=== PATIENT | male | born 1975 | race Two or more races ===

== ENCOUNTER 2021-06-24 22:57 | Emergency (ER) | payer MEDICAID ==
[~2021-06-24] VITALS: Ht 160 cm; Wt 68.0 kg
[2021-06-25 01:03] LABS: Albumin 3.6 g/dL (3.4-5.0); BUN/Creatinine Ratio 19.8; Calcium 8.3 mg/dL (8.5-10.1); Potassium 4.2 mmol/L (3.5-5.1)
[2021-06-25 01:06] LABS: Basophils # (auto) 0 10 ^3/uL (0-0.2); Basophils % (auto) 0.3 % (0.0-2.0); Bilirubin, Total 0.4 mg/dL (0.2-1.0); Eosinophils # (auto) 0.1 10 ^3/uL (0-0.8); Hematocrit 39.5 % (41.0-53.0); Hemoglobin 13.8 g/dL (13.5-17.5); Lymphocytes % (auto) 17.3 % (10.0-50.0); Mean Corpuscular Hemoglobin 30.9 pg (28.0-32.0); Mean Corpuscular Hgb Conc. 34.9 g/dL (32.0-36.0); Mean Corpuscular Volume 88.3 fL (80.0-100.0); Monocytes # (auto) 0.9 10 ^3/uL (0-1.3); Monocytes % (auto) 8.2 % (0.0-12.0); Neutrophils # (auto) 8.3 10 ^3/uL (1.6-8.6); Neutrophils % (auto) 73.2 % (37.0-80.0); Nucleated Red Blood Cells % 0.2 %; Red Blood Cells 4.47 10^6/uL (4.5-5.90); Red Cell Distribution Width 12.9 % (11.8-14.3); Total Protein 7.2 g/dL (6.4-8.2); White Blood Cell 11.3 10^3/uL (4.4-10.8)
[2021-06-25] MEDS ORDERED: SODIUM CHLORIDE 0.9% 1,000 ML IV ONE (05:45)
[2021-06-25 07:46] VITALS: BP 125/83
[2021-06-25] MEDS ORDERED: KETOROLAC TROMETH 30 MG/ML 1ML VIAL IV ONE (08:15)
[2021-06-25] MEDS ORDERED: ACETAMINOPHEN 500 MG TAB PO ONE (08:30)
== END 2021-06-25 09:03 | disposition home or self-care (01) ==
LOC: ER 22:57
DX: I12.9 Hypertensive chronic kidney disease with stage 1 through stage 4 chronic kidney disease, or unspecified chronic kidney disease (principal); E11.22 Type 2 diabetes mellitus with diabetic chronic kidney disease; E11.65 Type 2 diabetes mellitus with hyperglycemia; N18.30 Chronic kidney disease, stage 3 unspecified; Z20.822 Contact with and (suspected) exposure to COVID-19; Z90.89 Acquired absence of other organs; Z88.0 Allergy status to penicillin
CPT/HCPCS: 36415; 71045; 80053; 82962; 85025; 87426; 96360

== ENCOUNTER 2024-10-09 08:23 | Inpatient (IN) | payer MEDICAID ==
[~2024-10-09] VITALS: Ht 160 cm; Wt 70.2 kg
--- NOTE | 2024-10-09 08:34 | ECG ---
[facility] Test Date: 2024-10-09 Test Time: 08:29:19 Pat Name: SUSSY ZHU Department: er Room: [address] [place] [address] Gender: M [employer]: gp : 1975 Requested By: CHUYITA SCHWARTZ Order Number: [id number] Reading MD: Jose Enrique Ho Measurements Intervals [place] Rate: 112 P: 50 ND: 95 QRS: 80 QRSD: 89 T: -39 QT: 333 QTc: 455 Interpretive Statements Sinus tachycardia Probable inferior infarct, age indeterminate Lateral leads are also involved Baseline wander in lead(s) V4 Electronically Signed On 10-12-2024 17:18:51 PST by Jose Enrique Ho Please click the below link to view image of tracing.
--- NOTE | 2024-10-09 09:17 | ED.PDOC ---
History of Present Illness HPI Comments 49-year-old male presents with a chief complaint of right sided facial droop x onset yesterday morning at 0900. Patient states that in the morning he was noticing that he had right facial drooping and some slight dizziness. Patient denies any decreasing in ROM on his right side and is able to ambulate with a steady gait. Patient is alert and oriented x 4. Patient denies any changes to his vision, headache, loss of balance, or other neurological deficits. No other symptoms or modifying factors present at this time. Chief Complaint: Right Sided Weakness Time Seen by MD: 08:59 Primary Care Provider: ROMK Reviewed Notes: Medications, Allergies Allergies: Coded Allergies: Penicillins (Verified Allergy, Unknown, 06/24/21) Information Source: Patient Mode of Arrival: Ambulatory Severity: Moderate Timing: Hours Duration: Since onset Prehospital treatment: None Past Medical History PAST MEDICAL HISTORY: CKF, DM, HTN Surgical History: Appendectomy Family History Family History: Reviewed,noncontributory to illness Social History Smoker: Non-Smoker Alcohol: Denies ETOH Use Lives In: Home Constitutional: denies: chills, diaphoresis, fatigue, fever, malaise, sweats, weakness, others EENTM: denies: blurred vision, double vision, ear bleeding, ear discharge, ear drainage, ear pain, ear ringing, eye pain, eye redness, hearing loss, mouth pain, mouth swelling, nasal discharge, nose bleeding, nose congestion, nose pain, photophobia, tearing, throat pain, throat swelling, voice changes, others Respiratory: denies: cough, hemoptysis, orthopnea, SOB at rest, shortness of breath, SOB with excertion, stridor, wheezing, others Cardiovascular: denies: chest pain, dizzy spells, diaphoresis, Dyspnea on exertion, edema, irregular heart beat, left arm pain, lightheadedness, palpitations, PND, syncope, others Gastrointestinal: denies: abdomen distended, abdominal pain, blood streaked bowels, constipated, diarrhea, dysphagia, difficulty swallowing, hematemesis, melena, nausea, poor appetite, poor fluid intake, rectal bleeding, rectal pain, vomiting, others Genitourinary: denies: burning, dysuria, flank pain, frequency, hematuria, incontinence, penile discharge, penile sore, pain, testicle pain, testicle swelling, urgency, others Neurological: reports: right sided weakness (RIGHT SIDED FACIAL DROOP); denies: dizziness, fainting, headache, left sided numbness, left sided weakness, numbness, paresthesia, pre-existing deficit, right sided numbness, seizure, speech problems, tingling, tremors, weakness, others Musculoskeletal: denies: back pain, gout, joint pain, joint swelling, muscle pain, muscle stiffness, neck pain, others Integumetry: denies: bruises, change in color, change in hair/nails, dryness, laceration, lesions, lumps, rash, wounds, others Allergic/Immunocompromised: denies: Difficulty Healing, Frequent Infections, Hives, Itching, others Hematologic/Lymphatic: denies: anemia, blood clots, easy bleeding, easy bruising, swollen glands, others Endocrine: denies: excessive hunger, excessive sweating, excessive thirst, excessive urination, flushing, intolerance to cold, intolerance to heat, unexplained weight gain, unexplained weight loss, others Psychiatric: denies: anxiety, bipolar disorder, depression, hopeless, panic disorder, schizophrenia, sleepless, suicidal, others All Other Systems: Reviewed and Negative Physical Exam General Appearance: No Apparent Distress, Normal HEENT: Normal ENT Inspection, Pharynx Normal, TMs Normal Neck: Full Range of Motion, Non-Tender, Normal, Normal Inspection Respiratory: Chest Non-Tender, Lungs Clear, No Accessory Muscle Use, No Respiratory Distress, Normal Breath Sounds Cardiovascular: No Edema, No JVD, No Murmur, No Gallop, Normal Peripheral Pulses, Regular Rate/Rhythm Breast Exam: Deferred Gastrointestinal: No Organomegaly, Non Tender, No Pulsatile Mass, Normal Bowel Sounds, Soft Genitalia: Deferred Pelvic: Deferred Rectal: Deferred Extremities: No calf tenderness, Normal capillary refill, Normal inspection, Normal range of motion, Non-tender, No pedal edema Musculoskeletal : Apperance: Normal 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 Was a procedure done?: No Differential Dx Considerations may include: CVA, electrolyte abnormality X-Ray, Labs, Meds, VS Vital Signs Date Time Temp Pulse Resp B/P (MAP) Pulse Ox O2 Delivery O2 Flow Rate FiO2 10/09/24 10:24 98.6 100 18 144/93 (110) 98 98.6 10/09/24 09:25 98.3 110 18 146/79 (101) 97 98.3 10/09/24 08:36 97.9 109 18 161/94 (116) 97 10/09/24 08:29 112 Lab Test 10/09/24 10:25 10/09/24 09:30 10/09/24 08:28 Range/Units Troponin I High Sensitivity 15 16 </=54 ng/L White Blood Count 9.2 4.4-10.8 10^3/uL Red Blood Count 5.11 4.5-5.90 10^6/uL Hemoglobin 15.8 13.5-17.5 g/dL Hematocrit 45.8 41.0-53.0 % Mean Corpuscular Volume 89.7 80.0-100.0 fL Mean Corpuscular Hemoglobin 31.0 28.0-32.0 pg Mean Corpuscular Hemoglobin Concent 34.5 32.0-36.0 g/dL Red Cell Distribution Width 13.1 11.8-14.3 % Platelet Count 273 140-450 10^3/uL Mean Platelet Volume 8.9 6.9-10.8 fL Neutrophils (%) (Auto) 82.0 H 37.0-80.0 % Lymphocytes (%) (Auto) 12.0 10.0-50.0 % Monocytes (%) (Auto) 5.2 0.0-12.0 % Eosinophils (%) (Auto) 0.4 0.0-7.0 % Basophils (%) (Auto) 0.4 0.0-2.0 % Neutrophils # (Auto) 7.5 1.6-8.6 10 ^3/uL Lymphocytes # (Auto) 1.1 0.4-5.4 10 ^3/uL Monocytes # (Auto) 0.5 0-1.3 10 ^3/uL Eosinophils # (Auto) 0 0-0.8 10 ^3/uL Basophils # (Auto) 0 0-0.2 10 ^3/uL Nucleated Red Blood Cells 0.0 % Sodium Level 137 136-145 mmol/L Potassium Level 4.7 3.5-5.1 mmol/L Chloride Level 101 98-107 mmol/L Carbon Dioxide Level 29 20-31 mmol/L Anion Gap 7 5-15 Blood Urea Nitrogen 27 H 9-23 mg/dL Creatinine 1.40 H 0.700-1.30 mg/dL Glomerular Filtration Rate Calc 61 >90 mL/min BUN/Creatinine Ratio 19.3 10.0-20.0 Serum Glucose 456 *H 74-106 mg/dL Calcium Level 10.1 8.7-10.4 mg/dL POC Glucose 375 H 70-106 mg/dl Time of 1ST Reevaluation: 09:29 Reevaluation 1ST: Unchanged Patient Education/Counseling: Diagnosis, Treatment, Prognosis Family Education/Counseling: No Family Present Departure 1 Departure Time of Disposition: 09:45 (Patient presented with a cva but unfortunately patient is out of the window for any acute interventions at this time. Being greater than 24 hours out. We will admit patient for further workup and expert consultation.) Impression: Primary Impression: CVA (cerebral vascular accident) Qualified Codes: I63.9 - Cerebral infarction, unspecified Additional Impression: Right sided weakness Disposition: ADMITTED INPATIENT Admit to: Med Surg Condition: Serious Critical Care Note Critical Care Time?: Yes Critical care comment: Concern for CVA Authorized and Performed by: Chuyita Pack MD Total critical care time: Approximately 40 minutes Due to a high probability of clinically significant, life threatening deterioration, the patient required my highest level of preparedness to intervene emergently and I personally spent this critical care time directly and personally managing the patient. This critical care time included obtaining a history; examining the patient; pulse oximetry; ordering and review of studies; arranging urgent treatment with development of a management plan; evaluation of patient's response to treatment; frequent reassessment; and, discussions with other providers. This critical care time was performed to assess and manage the high probability of imminent, life-threatening deterioration that could result in multi-organ failure. It was exclusive of separately billable procedures and treating other patients and teaching time. Please see my other sections and the rest of the note for further information on patient assessment and treatment. Stability Stability form required: No I personally scribed for CHUYITA PACK MD ([email or web address]) on 10/09/24 at 09:17. Electronically submitted by Chucho Jeong ([email or web address]). CHUYITA PACK MD Oct 09, 2024 09:17
--- NOTE | 2024-10-09 09:27 | DVH ---
CHEST RADIOGRAPH Indication: facial droop Technique: Frontal and lateral view of the chest was obtained Comparison: None FINDINGS: Lines and Tubes: None Lungs: Clear Pleura: No effusion. No pneumothorax. Cardiomediastinal contours: Unremarkable Bones: Unremarkable IMPRESSION: No evidence of acute disease.
--- NOTE | 2024-10-09 09:36 | DVH ---
EXAM: CT HEAD WITHOUT CONTRAST INDICATION: facial droop TECHNIQUE: CT of the head without intravenous contrast. Radiation Dose : 1. Head: CT Dose: CTDI volume is 56.67 mGy. Dose-length product is 1003.41 mGy*cm The dose indicators for CT are the volume Computed Tomography (CT) Dose Index (CTDIvol) and the Dose Length Product (DLP), and are measured in units of mGy and mGy-cm, respectively. These indicators are not patient dose, but values generated from the CT scanner acquisition factors. The report includes radiation exposure data for exposures received during this examination. COMPARISON: None FINDINGS: There is no evidence of acute intracranial hemorrhage, extra-axial collection, mass effect, midline s hift, herniation or hydrocephalus. The ventricles, sulci and cisterns are age appropriate. 1.1 cm region of hypoattenuation in the left anterior internal capsule. The visualized paranasal sinuses and mastoid air cells are clear. The surrounding soft tissues and osseous structures are unremarkable. IMPRESSION: Possible acute to subacute infarct in the left anterior internal capsule. Clinical correlation advise d. MRI can be obtained to further evaluate. Critical Result: Stroke Alert Findings discussed with CHUYITA SCHWARTZ at 10/09/2024 09:33 AM, and acknowledged receipt and understandi ng of the findings. Radiation optimization: All CT scans at this facility use at least one of these dose optimization isi hniques: automated exposure control mA and/or kV adjustment per patient size (includes targeted exam s where dose is matched to clinical indication) or iterative reconstruction.
[2024-10-09 09:56] LABS: Basophils # (auto) 0 10 ^3/uL (0-0.2); Basophils % (auto) 0.4 % (0.0-2.0); Eosinophils # (auto) 0 10 ^3/uL (0-0.8); Eosinophils % (auto) 0.4 % (0.0-7.0); Hematocrit 45.8 % (41.0-53.0); Hemoglobin 15.8 g/dL (13.5-17.5); Lymphocytes # (auto) 1.1 10 ^3/uL (0.4-5.4); Mean Corpuscular Hgb Conc. 34.5 g/dL (32.0-36.0); Mean Corpuscular Volume 89.7 fL (80.0-100.0); Monocytes # (auto) 0.5 10 ^3/uL (0-1.3); Monocytes % (auto) 5.2 % (0.0-12.0); Neutrophils # (auto) 7.5 10 ^3/uL (1.6-8.6); Platelet Count (auto) 273 10^3/uL (140-450); Red Blood Cells 5.11 10^6/uL (4.5-5.90); Red Cell Distribution Width 13.1 % (11.8-14.3); White Blood Cell 9.2 10^3/uL (4.4-10.8)
[2024-10-09 10:05] LABS: Anion Gap 7 (5-15); Carbon Dioxide 29 mmol/L (20-31); Chloride 101 mmol/L (98-107); Potassium 4.7 mmol/L (3.5-5.1); Sodium 137 mmol/L (136-145)
[2024-10-09 10:06] LABS: Calcium 10.1 mg/dL (8.7-10.4)
[2024-10-09 10:11] LABS: BUN/Creatinine Ratio 19.3 (10.0-20.0); Blood Urea Nitrogen 27 mg/dL (9-23)
[2024-10-09 10:49] LABS: Glucose 456 mg/dL (74-106)
[2024-10-09] MEDS ORDERED: DOCUSATE SOD 100 MG CAP PO PRN (13:30)
[2024-10-09] MEDS ORDERED: HYDROcodone-ACET 5/325MG TAB PO PRN (13:30)
[2024-10-09] MEDS ORDERED: DEXTROSE (50%) 50ML SYRG IV PRN (13:30)
[2024-10-09] MEDS ORDERED: ONDANSETRON HCL 4 MG/2 ML VIAL IV PRN (13:30)
[2024-10-09] MEDS: SODIUM CHLORIDE 0.9% 1,000 ML IV SCH (13:45)
--- NOTE | 2024-10-09 14:50 | DVHHP2 ---
History of Present Illness Reason for Visit: CVA (cerebral vascular accident) History of Present Illness The patient is a 49-year-old male with past medical history of CKD, DM, and hypertension who presented to [facility] ED for evaluation of right- sided facial droop. Patient reports symptoms started yesterday morning at 9:00 a.m. associated with right-sided weakness, dizziness, getting worse that prompted this visit. Patient was seen and evaluated in the ED, laboratory data shows WBC 9.2, platelets 273, sodium 137, potassium 4.7, BUN 27, creatinine 1.40, GFR 61, glucose 456, troponin 15, blood pressure 133/91, heart rate 96, temperature 97.9 F, O2 saturation 98% on room air. Chest x-ray showed no evidence of acute disease. Head CT revealing possible acute to subacute infarct in the left anterior internal capsule. Patient was seen by neurologist with recommendation to give Plavix 300 mg p.o. x1, not a candidate for tPA given patient has past the 4-1/2 hours window. On my assessment, patient denied chest pain, no headache, no dizziness, no diaphoresis, no shortness of breath, no change in vision, no nausea, no vomiting, no fever, no chills. Patient was admitted for further evaluation and medical management. Past Medical History CKD, DM, HTN Past Surgical History Appendectomy Family History Reviewed, noncontributory to the management of this case. Past Social History The patient lives at home, denies smoking, alcohol or illicit drugs abuse. Review of Systems Constitutional: Yes: Weakness; No: Fever, Chills, Sweats, Malaise, Other Eyes: No: Pain, Vision change, Conjunctivae inflammation, Eyelid inflammation, Other, Redness ENT: No: Ear pain, Ear discharge, Nose pain, Nose discharge, Nose congestion, Mouth pain, Mouth swelling, Throat pain, Throat swelling, Other Respiratory: No: Cough, Dry, Shortness of breath, SOB with excertion, Wheezing, Hemoptysis, Pleuritic Pain, Sputum, Wheezing, Other Cardiovascular: No: Chest Pain, Palpitations, Orthopnea, Paroxysmal Noc. Dyspnea, Edema, Lt Headedness, Other Gastrointestinal: No: Nausea, Vomiting, Abdominal Pain, Diarrhea, Constipation, Melena, Hematochezia, Other Genitourinary: No Dysuria, No Frequency, No Incontinence, No Hematuria, No Ret ention, No Other Musculoskeletal: No: other, neck pain, shoulder pain, arm pain, back pain, hand pain, leg pain, foot pain Skin: No: Rash, Lesions, Jaundice, Bruising, Other Neurological: Weakness (Right-sided), Other (Facial droop); No: Numbness, Incoordination, Change in speech, Confusion, Seizures Allergies: Coded Allergies: Penicillins (Verified Allergy, Unknown, 06/24/21) Medications Current Medications Medications Dose Ordered Sig/Maribel Route Start Time Stop Time Status Last Admin Dose Admin Diagnostic Test (Pha) 1 strip IQ4HR 10/09/24 16:00 Insulin Human Regular IQ4HR SC 10/09/24 16:00 Dextrose 50 ml UD PRN IV 10/09/24 13:30 Sodium Chloride 1,000 ml @ 60 mls/hr [id number] IV 10/09/24 13:30 10/09/24 13:45 60 MLS/HR Acetaminophen/ Hydrocodone Bitart 1 tab Q4HP PRN PO 10/09/24 13:30 Ondansetron HCl 4 mg Q4HP PRN IV 10/09/24 13:30 Docusate Sodium 100 mg BIDPRN PRN PO 10/09/24 13:30 Acetaminophen 650 mg Q6HP PRN PO 10/09/24 13:30 Exam Vital Signs Vital Signs Date Time Temp Pulse Resp B/P (MAP) Pulse Ox O2 Delivery O2 Flow Rate FiO2 10/09/24 12:30 97.9 97 18 133/91 (105) 97 97.9 General Appearance: Alert, Oriented X3, Cooperative, No acute distress HEENT: Atraumatic, PERRLA, EOMI, Mucous membr. moist/pink Respiratory: Clear to auscultation, Normal air movement Cardiovascular: Regular rate, Normal S1, Normal S2, No murmurs Abdominal: Normal bowel sounds, Soft, No tenderness, No hepatospenomegaly, No masses Extremities: No clubbing, No cyanosis, No edema, Normal pulses, No tenderness/swelling Skin: No rashes, No breakdown, No significant lesion Neuro: Normal speech, Normal tone, Sensation intact, Cranial nerves 3-12 NL, Reflexes 2+, Other (Right-sided weakness) Psych/Mental Status: Mental status NL, Mood NL Labs/Xrays Labs Test 10/09/24 12:35 10/09/24 09:30 10/09/24 08:28 Range/Units Troponin I High Sensitivity 15 </=54 ng/L White Blood Count 9.2 4.4-10.8 10^3/uL Red Blood Count 5.11 4.5-5.90 10^6/uL Hemoglobin 15.8 13.5-17.5 g/dL Hematocrit 45.8 41.0-53.0 % Mean Corpuscular Volume 89.7 80.0-100.0 fL Mean Corpuscular Hemoglobin 31.0 28.0-32.0 pg Mean Corpuscular Hemoglobin Concent 34.5 32.0-36.0 g/dL Red Cell Distribution Width 13.1 11.8-14.3 % Platelet Count 273 140-450 10^3/uL Mean Platelet Volume 8.9 6.9-10.8 fL Neutrophils (%) (Auto) 82.0 H 37.0-80.0 % Lymphocytes (%) (Auto) 12.0 10.0-50.0 % Monocytes (%) (Auto) 5.2 0.0-12.0 % Eosinophils (%) (Auto) 0.4 0.0-7.0 % Basophils (%) (Auto) 0.4 0.0-2.0 % Neutrophils # (Auto) 7.5 1.6-8.6 10 ^3/uL Lymphocytes # (Auto) 1.1 0.4-5.4 10 ^3/uL Monocytes # (Auto) 0.5 0-1.3 10 ^3/uL Eosinophils # (Auto) 0 0-0.8 10 ^3/uL Basophils # (Auto) 0 0-0.2 10 ^3/uL Nucleated Red Blood Cells 0.0 % Sodium Level 137 136-145 mmol/L Potassium Level 4.7 3.5-5.1 mmol/L Chloride Level 101 98-107 mmol/L Carbon Dioxide Level 29 20-31 mmol/L Anion Gap 7 5-15 Blood Urea Nitrogen 27 H 9-23 mg/dL Creatinine 1.40 H 0.700-1.30 mg/dL Glomerular Filtration Rate Calc 61 >90 mL/min BUN/Creatinine Ratio 19.3 10.0-20.0 Serum Glucose 456 *H 74-106 mg/dL Calcium Level 10.1 8.7-10.4 mg/dL POC Glucose 375 H 70-106 mg/dl PATIENT: SUSSY ZHUACCT: [id number] UNIT: [id number] : 1975 LOC: ER ROOM / BED: / AGE / SEX: 49 / M ADM STATUS: REG ER SERVICE 0900 ORDERING PHYSICIAN: CHUYITA SCHWARTZ MD PROCEDURE(s): HWOCT - HEAD WITHOUT CONTRAST REASON: facial droop ORDER NUMBER(s): [id number], ACCESSION NUMBER(s): [id number] EXAM: CT HEAD WITHOUT CONTRAST INDICATION: facial droop TECHNIQUE: CT of the head without intravenous contrast. Radiation Dose : 1. Head: CT Dose: CTDI volume is 56.67 mGy. Dose-length product is 1003.41 mGy*cm The dose indicators for CT are the volume Computed Tomography (CT) Dose Index (CTDIvol) and the Dose Length Product (DLP), and are measured in units of mGy and mGy-cm, respectively. These indicators are not patient dose, but values generated from the CT scanner acquisition factors. The report includes radiation exposure data for exposures received during this examination. COMPARISON: None FINDINGS: There is no evidence of acute intracranial hemorrhage, extra-axial collection, mass effect, midline shift, herniation or hydrocephalus. The ventricles, sulci and cisterns are age appropriate. 1.1 cm region of hypoattenuation in the left anterior internal capsule. The visualized paranasal sinuses and mastoid air cells are clear. The surrounding soft tissues and osseous structures are unremarkable. IMPRESSION: Possible acute to subacute infarct in the left anterior internal capsule. Clin ical correlation advised. MRI can be obtained to further evaluate. Critical Result: Stroke Alert Findings discussed with CHUYITA SCHWARTZ at 10/09/2024 09:33 AM, and acknowledged receipt and understanding of the findings. ORDERING PHYSICIAN: CHUYITA SCHWARTZ MD PROCEDURE(s): CXR2 - CHEST TWO VIEWS ROUTINE REASON: facial droop ORDER NUMBER(s): [id number], ACCESSION NUMBER(s): [id number] CHEST RADIOGRAPH Indication: facial droop Technique: Frontal and lateral view of the chest was obtained Comparison: None FINDINGS: Lines and Tubes: None Lungs: Clear Pleura: No effusion. No pneumothorax. Cardiomediastinal contours: Unremarkable Bones: Unremarkable IMPRESSION: No evidence of acute disease. Assessment/Plan Assessment/Plan CVA (cerebral vascular accident) Cerebral infarction, unspecified Right sided weakness Plan 1. Admit to telemetry unit 2. Breathing treatment 3. Pain control management 4. Management of fluids and electrolytes 5. Consultation for Neurology 6. Diagnostic tests head CT 7. DVT prophylaxis on aspirin 8. Repeat labs CBC, CMP in a.m. 9. Continue with current medical management 10. Treatment plan discussed with patient and RN. Patient verbalized unde rstanding. Plan discussed with: Patient, Other (RN) My Orders Orders - NATALIE SALVADOR DNP Procedure Category Date Status Time * Neurology Consult CONS 10/09/24 Transmitted 13:17 Consistent DIET 10/09/24 Transmitted Carb(Ccho)Diabetes Lunch Glucose Blood PHA 10/09/24 In Process (Accu-Chek Comfort 16:00 Insulin R (Human) PHA 10/09/24 In Process (Insulin R) 16:00 Dextrose 50% Syringe PHA 10/09/24 In Process 13:30 Allergies NIECY 10/09/24 In Process 13:17 Code Status CODE 10/09/24 Transmitted 13:17 Sodium Chloride 0.9% PHA 10/09/24 In Process 13:30 Oxygen Per Hour RT 10/09/24 Transmitted 13:17 Hydrocodone-Acet PHA 10/09/24 In Process 5/325mg Tab ([place] 13:30 Ondansetron Hcl PHA 10/09/24 In Process (Zofran) 13:30 Docusate Sodium PHA 10/09/24 In Process Capsule (Colace 13:30 Fall Risk Precautions NIECY 10/09/[address] 13:17 Complete Blood Count LAB 10/10/24 Verified 04:00 Comprehensive LAB 10/10/24 Verified Metabolic Panel 04:00 Condition: Serious NIECY 10/09/24 In Process 13:17 Acetaminophen Tablet PHA 10/09/24 In Process (Tylenol Tablet) 13:30 Sequential NIECY 10/09/24 In Process Compression Device Problem List: (1) CVA (cerebral vascular accident) (2) Cerebral infarction, unspecified (3) Right sided weakness Date of Service: Oct 09, 2024 Billing Provider: NATALIE SALVADOR DNP Common Visit Codes: 66509-IAZSKQT INP/OBS CARE (HIGH) NATALIE SALVADOR DNP Oct 09, 2024 14:50
[2024-10-09] MEDS ORDERED: NITROGLYCERIN 0.4 MG SL TAB SL PRN (15:00)
[2024-10-09] MEDS ORDERED: MORPHINE SULFATE INJ 2 MG/ml SYRG IV PRN (15:00)
--- NOTE | 2024-10-09 15:43 | BSKYNEURO ---
[place] [facility] Note # Demographics Consult Type: General Neurology Patient Location: Emergency Room First Name: SUSSY Last Name: AUDRA Date of : 1975 Age: 49 Gender: Male Facility: [facility] Time of Initial Page (): 10/09/2024, 14:15 Time of Return Call (): 10/09/2024, 14:15 # HPI History: LKN- yesterday morning Patient is coming to ER for right facial droop and right arm and speaking diffficulty. H/O DM # Scores Time of exam and NIHSS (): 10/09/2024, 15:36 Level of Consciousness 1a: [0] = Alert; keenly responsive LOC Questions 1b: [0] = Answers both questions correctly LOC Commands 1c: [0] = Performs both tasks correctly Best Gaze 2: [0] = Normal Visual 3: [0] = No visual loss Facial Palsy 4: [2] = Partial paralysis Motor Arm Left 5a: [0] = No drift Motor Arm Right 5b: [1] = Drift Motor Leg Left 6a: [0] = No drift Motor Leg Right 6b: [1] = Drift Limb Ataxia 7: [0] = Absent Sensory 8: [0] = Normal Best Language 9: [0] = No aphasia Dysarthria 10: [1] = [id number] dysarthria Extinction and Inattention 11: [0] = No abnormality NIHSS Total: 5 # Assessment Impression: - Ischemic Stroke (Acute) - Stroke Mimic NIHSS is 5; 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- another possibility is that he has recrudescence of previous stroke symptoms # Plan Thrombolytic/Intervention: NOT IV Thrombolysis or IA Intervention candidate Thrombolytic Exclusion: > 4.5 hours Intraarterial Exclusion: - no large vessel occlusion (LVO) Target Blood Pressure: - SBP < 180 - SBP > 140 Labs: - hemoglobin A1c - lipid panel - comprehensive metabolic panel - CBC Imaging: (urgency: routine): - MRI Brain without contrast Diagnostic Test: - echo with bubble study Therapy/Evaluation: - NPO until swallow evaluation - PT/OT evaluation Medication: - start statin with goal of LDL < 70 - Plavix 300 mg PO x1 now, then 75 mg daily x 21 days + asa 81mg x 21 days, followed by monotherapy thereafter Other: - If patient has any neurological deterioration please call me back immediately - permissive hypertension - LDL < 70 - telemetry monitoring - will need event monitor or loop recorder as outpatient if atrial fibrillation not found as inpatient - neurology referral as outpatient - I have discussed my recommendations with the referring provider Disposition: admit # Logistics Attestation of consult completion: The patient is located at: [facility]. Facility staff participated in the visit. I performed this telemedicine visit from my offsite office utilizing interactive 2 way audio and visual telecommunication technology. Total time spent in telemedicine encounter: I spent 15 minutes reviewing clinical data and/or imaging, obtaining history, examining the patient, communicating with the onsite care team, and in preparation of this report. # Demographics First Name: SUSSY Last Name: AUDRA Facility: [facility] Yes DORA SEO MD Oct 09, 2024 15:43
[2024-10-09] MEDS: CLOPIDOGREL BISULFATE 75 MG TAB PO ONE (15:54)
[2024-10-09] MEDS: InsuLIN REG 1unit/0.01ml Soln (100units/ml) SC SCH (16:03)
[2024-10-09] MEDS: ACCU-CHEK COMFORT CURVE STRIP VI SCH (16:08)
[2024-10-09 17:15] VITALS: PULSE 88; RESP 12; O2SAT 97
[2024-10-09 21:00] VITALS: PULSE 85; RESP 16; O2SAT 97
[2024-10-09] MEDS: ATORVASTATIN 20 MG TAB PO SCH (22:15)
[2024-10-09 22:31] VITALS: BP 158/88; PULSE 92; RESP 18; TEMP 98.2; O2SAT 95
[2024-10-10] VITALS (8 sets, daily range): BP systolic 145–165; BP diastolic 78–91; PULSE 78–94; RESP 18–19; TEMP 98.1–98.7; O2SAT 96–99
[2024-10-10 06:02] LABS: Basophils # (auto) 0 10 ^3/uL (0-0.2); Basophils % (auto) 0.4 % (0.0-2.0); Eosinophils # (auto) 0.1 10 ^3/uL (0-0.8); Eosinophils % (auto) 1.1 % (0.0-7.0); Hematocrit 42.2 % (41.0-53.0); Hemoglobin 14.9 g/dL (13.5-17.5); Lymphocytes # (auto) 2.3 10 ^3/uL (0.4-5.4); Lymphocytes % (auto) 26.7 % (10.0-50.0); Mean Corpuscular Hemoglobin 31.3 pg (28.0-32.0); Mean Corpuscular Hgb Conc. 35.3 g/dL (32.0-36.0); Mean Corpuscular Volume 88.7 fL (80.0-100.0); Monocytes # (auto) 0.6 10 ^3/uL (0-1.3); Neutrophils # (auto) 5.6 10 ^3/uL (1.6-8.6); Neutrophils % (auto) 64.8 % (37.0-80.0); Nucleated Red Blood Cells % 0.3 %; Platelet Count (auto) 261 10^3/uL (140-450); Red Blood Cells 4.76 10^6/uL (4.5-5.90); Red Cell Distribution Width 13.1 % (11.8-14.3); White Blood Cell 8.7 10^3/uL (4.4-10.8)
[2024-10-10 06:16] LABS: Alanine Aminotransferase 19 U/L (7-40); Albumin 3.8 g/dL (3.2-4.8); Alkaline Phosphatase 88 U/L (46-116); Anion Gap 7 (5-15); Aspartate Aminotransferase 15 U/L (13-40); Blood Urea Nitrogen 25 mg/dL (9-23); Calcium 9.8 mg/dL (8.7-10.4); Carbon Dioxide 28 mmol/L (20-31); Chloride 109 mmol/L (98-107); Potassium 3.4 mmol/L (3.5-5.1); Sodium 144 mmol/L (136-145)
[2024-10-10 06:17] LABS: Bilirubin, Total 0.5 mg/dL (0.2-1.0); Total Protein 6.6 g/dL (5.7-8.2)
[2024-10-10 06:22] LABS: Glucose 43 mg/dL (74-106)
[2024-10-10] MEDS: CLOPIDOGREL BISULFATE 75 MG TAB PO SCH (10:21)
[2024-10-10] MEDS: ASPirin 81 mg TAB PO SCH (10:22)
[2024-10-10] MEDS: POTASSIUM CHL 20MEQ/100ML 100 ML IV SCH (10:30)
[2024-10-10] MEDS ORDERED: IOHEXOL 350 MG/ML 100ML IJ ONE (10:59)
[2024-10-10] MEDS ORDERED: ATORVASTATIN 20 MG TAB PO SCH (11:15)
[2024-10-10 11:16] LABS: Triglycerides 124 mg/dL (< 150)
[2024-10-10 11:17] LABS: LDL Cholesterol 180 mg/dL (< 100)
[2024-10-10 11:18] LABS: Cholesterol 251 mg/dL (< 200); HDL Cholesterol 47 mg/dL (40-59)
--- NOTE | 2024-10-10 11:44 | DVH ---
EXAM: CT HEAD WITHOUT CONTRAST HISTORY: fu stroke COMPARISON: CT HEAD WITHOUT CONTRAST on DOS: 10/09/24 TECHNIQUE: Axial images of the head were obtained and reformatted in coronal and sagittal planes. All CT scans at this medical facility are performed using dose modulation techniques as appropriate t o a performed exam including the following: Automated exposure control was utilized; adjustment of th e MA and/or KV according to patient size; and use of iterative reconstruction technique. CT Dose: CTDI volume is 22 mGy. Dose-length product is 1933 mGy*cm FINDINGS: There is a fcfxh-eq-exqkhobg sized hypodense area extending from the left goodwin radiata into the lef t basal ganglia compatible with an age-indeterminate infarct. This appears mildly larger in size comp arison to the prior study. There is a stable small hypodense focus in the right caudate head probably a chronic lacunar infarct. There is no evidence of acute intracranial hemorrhage, mass, mass effect midline shift. There is no hydrocephalus or extra-axial fluid collection. Mild mucosal thickening in the maxillary sinuses. The remaining visualized paranasal sinuses and mast oid air cells are clear. The calvarium is intact. IMPRESSION: 1. Hjabk-qn-bcnaolhm sized hypodense area extending from the left goodwin radiata and left basal gangl ia compatible with an age indeterminate infarct. This appears mildly larger in size comparison to the prior study. Clinical correlation and further evaluation with MRI brain with diffusion-weighted imag ing is recommended. HS:Y
--- NOTE | 2024-10-10 12:01 | DVH ---
INDICATION: F/U STROKE COMPARISON: None TECHNIQUE: CTA head with intravenous contrast. CTA neck with intravenous contrast. 3D image postpr ocessing was performed on a dedicated workstation and images were used for interpretation and reporti ng. Radiation Dose Information: CT Dose: CTDI volume is 100 mGy. Dose-length product is 1933 mGy*cm CONTRAST: Type of contrast: Omni 350 Contrast injected: 100 ml Contrast ingested: 0 ml FINDINGS: CTA head: There is normal enhancement of the visualized distal internal carotid, anterior and middle cerebral a rteries. There is a normal anterior communicating artery complex. The vertebral, basilar, cerebella r and posterior cerebral arteries are within normal limits. The early parenchymal enhancement is brian ssly unremarkable. There is hypodensity in the left basal ganglia consistent with old infarct. The v isualized intracranial venous structures are grossly unremarkable. CTA neck: The visualized thoracic aortic arch and proximal great vessels are unremarkable. The left common, internal and external carotid arteries are within normal limits. The right common, internal and external carotid arteries are within normal limits. The cervical segments of the right and left vertebral arteries are within normal limits. The limited visualized lung apices are clear. The surrounding soft tissues and osseous structures ar e otherwise unremarkable. IMPRESSION: 1. Old left basal ganglia infarct. 2. No evidence of hemodynamically significant intracranial stenosis, proximal occlusion or aneurysm. 3. No evidence of hemodynamically significant carotid stenosis or dissection. All CT scans at this medical facility are performed using dose modulation techniques as appropriate t o a performed exam including the following: Automated exposure control was utilized; adjustment of th e MA and/or KV according to patient size; and use of iterative reconstruction technique. HS:Y
--- NOTE | 2024-10-10 14:53 | DVHSR ---
APPROVED REPORT EXAM: Two-dimensional and M-mode echocardiogram with Doppler, color Doppler and Bubble Study. Blood Pressure: 165/91 mmHg RISK FACTORS Height: 5'3", Weight: 148 DIMENSIONS LVDd4.7 (3.8-5.7cm)LA (2D)4.5 (1.9-4.0cm)Aortic Root3.1 (2.0-3.7cm) LVDs3.4 (2.5-4.0cm)LA (MM) (1.9-4.0cm)Aortic Cusp Exc1.6 (1.5-2.0cm) EF (%) 56.0 (55-70%)Rt. Atrium4.2 (1.9-4.0cm)Asc. Aorta2.9 cm IVSd0.9 (0.7-1.1cm)RV (D) (1.8-2.4cm) PWd0.8 (0.7-1.1cm) Mitral Valve MitralMitral Stenosis E wave0.67m/sMV Mean GR.mmHg A wave0.96m/sMV Peak GR.mmHg E/A ratio0.72D MVAcm2 DECEL [id number] 1/2 Timems Aortic Valve Aortic ValveAortic Stenosis V10.83m/Latsiha Mean GR.3mmHg V21.24m/Latisha Peak GR.6mmHg LVOT Diameter2.2 (1.8-2.4cm)Doppler AVA2.54cm2 Pulmonic Valve V20.97m/s Conclusion Normal left ventricular size and dimension. Normal right ventricular systolic function estimated eje ction fraction 55%. There is a grade 1 diastolic dysfunction. Normal right ventricular size and dimension. Normal right ventricular systolic function. Normal biatrial size and dimension. Normal aortic valve structure and function. Normal mitral valve structure and function. Normal tricuspid valve structure and function. The pulmonary valve is grossly normal. No pericardial effusion.
--- NOTE | 2024-10-10 15:31 | DVHDSRES ---
Discharge Summary Date of Admission Oct 09, 2024 at 14:49 Labs/Diagnostic Data: Laboratory Results Test 10/10/24 11:40 10/10/24 05:43 10/09/24 12:35 POC Glucose 250 mg/dl (70-106) White Blood Count 8.7 10^3/uL (4.4-10.8) Red Blood Count 4.76 10^6/uL (4.5-5.90) Hemoglobin 14.9 g/dL (13.5-17.5) Hematocrit 42.2 % (41.0-53.0) Mean Corpuscular Volume 88.7 fL (80.0-100.0) Mean Corpuscular Hemoglobin 31.3 pg (28.0-32.0) Mean Corpuscular Hemoglobin Concent 35.3 g/dL (32.0-36.0) Red Cell Distribution Width 13.1 % (11.8-14.3) Platelet Count 261 10^3/uL (140-450) Mean Platelet Volume 8.3 fL (6.9-10.8) Neutrophils (%) (Auto) 64.8 % (37.0-80.0) Lymphocytes (%) (Auto) 26.7 % (10.0-50.0) Monocytes (%) (Auto) 7.0 % (0.0-12.0) Eosinophils (%) (Auto) 1.1 % (0.0-7.0) Basophils (%) (Auto) 0.4 % (0.0-2.0) Neutrophils # (Auto) 5.6 10 ^3/uL (1.6-8.6) Lymphocytes # (Auto) 2.3 10 ^3/uL (0.4-5.4) Monocytes # (Auto) 0.6 10 ^3/uL (0-1.3) Eosinophils # (Auto) 0.1 10 ^3/uL (0-0.8) Basophils # (Auto) 0 10 ^3/uL (0-0.2) Nucleated Red Blood Cells 0.3 % Sodium Level 144 mmol/L (136-145) Potassium Level 3.4 mmol/L (3.5-5.1) Chloride Level 109 mmol/L (98-107) Carbon Dioxide Level 28 mmol/L (20-31) Anion Gap 7 (5-15) Blood Urea Nitrogen 25 mg/dL (9-23) Creatinine 1.00 mg/dL (0.700-1.30) Glomerular Filtration Rate Calc 92 mL/min (>90) BUN/Creatinine Ratio 25.0 (10.0-20.0) Serum Glucose 43 mg/dL (74-106) Calcium Level 9.8 mg/dL (8.7-10.4) Total Bilirubin 0.5 mg/dL (0.2-1.0) Aspartate Amino Transferase (AST) 15 U/L (13-40) Alanine Aminotransferase (ALT) 19 U/L (7-40) Alkaline Phosphatase 88 U/L (46-116) Total Protein 6.6 g/dL (5.7-8.2) Albumin 3.8 g/dL (3.2-4.8) Triglycerides Level 124 mg/dL (< 150) Cholesterol Level 251 mg/dL (< 200) LDL Cholesterol 180 mg/dL (< 100) HDL Cholesterol 47 mg/dL (40-59) Troponin I High Sensitivity 15 ng/L (</=54) Other Laboratory Tests 10/10/24 05:43 Discharge Statement: "Patient was advised to return to the ER or call 911 if any headaches, dizziness, shortness of breath, chest pain, abdominal pain, bleeding, fevers, or worsening of medical condition. Patient was counseled about treatment plan, medications, possible side effects, patientverbalized understanding. All questions were answered to the best of my ability. This discharge took greater then 30 minutes in planning, reviewing documentation, counseling the patient, and discussing with other team members." ASSESSMENT ASSESSMENT Assessment AISHA HERNANDEZ RESIDENT Oct 10, 2024 15:31
--- NOTE | 2024-10-10 15:32 | DVHPNRES ---
Progress Note Date Seen: Oct 10, 2024 Resident Creating Document: AISHA HERNANDEZ RESIDENT Has the PT tested + for MRSA If YES, has PT been informed?: No Medical Necessity Reason Pt with a Central, PICC or Fol: No Subjective Review of Systems A 49-year-old male with PMHx of DM, HL and HTN presented to ED with right-sided facial droop, right arm weakness, and mild dysarthria. Symptoms started tuesday10/08/2024 morning at approximately 0900. No vision changes, headache, loss of balance, or other neurologic deficits are reported. No syncope no chest pain. moderate alcohol intake Pt is non compliant with medication Objective vital signs Vital Sign Date Time Temp Pulse Resp B/P (MAP) Pulse Ox O2 Delivery O2 Flow Rate FiO2 10/10/24 13:00 98.3 90 18 151/82 (105) 97 98.3 10/10/24 08:00 Room Air* 0 21 Total Intake and Output 10/09/24 10/09/24 10/10/24 15:00 23:00 07:00 Intake Total 340 ml Output Total 500 ml Balance -160 ml medications Current Medications Medications Dose Ordered Sig/Maribel Route Start Time Stop Time Status Last Admin Dose Admin Diagnostic Test (Pha) 1 strip IQ4HR 10/09/24 16:00 10/10/24 12:00 1 STRIP Dextrose 50 ml UD PRN IV 10/09/24 13:30 Sodium Chloride 1,000 ml @ 60 mls/hr [id number] IV 10/09/24 13:30 10/10/24 06:31 60 MLS/HR Acetaminophen/ Hydrocodone Bitart 1 tab Q4HP PRN PO 10/09/24 13:30 Ondansetron HCl 4 mg Q4HP PRN IV 10/09/24 13:30 Docusate Sodium 100 mg BIDPRN PRN PO 10/09/24 13:30 Acetaminophen 650 mg Q6HP PRN PO 10/09/24 13:30 Nitroglycerin 0.4 mg Q5MINP PRN SL 10/09/24 15:00 Morphine Sulfate 2 mg Q30M PRN IV 10/09/24 15:00 Aspirin 81 mg DAILY PO 10/10/24 10:00 10/10/24 10:22 81 MG Clopidogrel Bisulfate 75 mg DAILY PO 10/10/24 10:00 10/10/24 10:21 75 MG Potassium Chloride 100 ml @ 50 mls/hr Q2H IV 10/10/24 10:30 10/10/24 16:29 10/10/24 14:30 50 MLS/HR Atorvastatin Calcium 80 mg HS PO 10/10/24 22:00 Examination General: Alert, oriented 4, appears mildly distressed. Neurologic: anisocoria NIHSS: 5 Facial palsy: Partial paralysis on the right. Motor strength: Drift in the right arm and right leg, no drift on the left side. Speech: Mild to moderate dysarthria. Other findings: No visual loss, aphasia, or sensory deficits. Cardiac: Regular rate and rhythm; no murmurs, rubs, or gallops. Respiratory: No distress, normal breath sounds bilaterally. Head and Neck: No carotid bruit; no jugular venous distention. Extremities: No edema. laboratory and microbiology Laboratory Tests 10/10/24 05:43 Test 10/10/24 05:43 Range/Units Serum Glucose 43 #*L 74-106 mg/dL Problem List/Assessment/Plan Problem List/Assessment/Plan Acute ischemic stroke likely recrudescence of prior stroke Diabetes Mellitus type 2 Essential hypertension Non-candidate for thrombolytic therapy (symptom onset >4.5 hours). Exclusion criteria for intra-arterial intervention: No large vessel occlusion seen. Head CT scan 1. Flfrk-jf-lzavtvhe sized hypodense area extending from the left goodwin radiata and left basal ganglia compatible with an age indeterminate infarct. This appears mildly larger in size comparison to the prior study. Clinical correlation and further evaluation with MRI brain with diffusion- weighted imaging is recommended. Neck Angio 1. Old left basal ganglia infarct. 2. No evidence of hemodynamically significant intracranial stenosis, proximal occlusion or aneurysm. 3. No evidence of hemodynamically significant carotid stenosis or dissection. Brain MRI Diffusion restriction in the left parietal periventricular white matter/caudate body. The brain otherwise shows normal morphology and signal characteristics. No abnormal or susceptibility hypointensity is present. The ventricles are normal in size. The midline structures are intact. The major intracranial flow voids are present. The aerated spaces are unremarkable. The orbital contents and extracranial soft tissues appear normal. Plan: Blood Pressure Management: Target SBP <180 mmHg, >140 mmHg. Avoid hypoglycemia Workup: Hemoglobin A1c, lipid panel, comprehensive metabolic panel, CBC. Diagnostic Studies: Echocardiogram with bubble study for embolic evaluation. Swallow evaluation. Physical l therapy consultation. Medications: statin therapy to achieve LDL <70. Antiplatelet therapy: Plavix 300 mg PO x1, followed by 75 mg daily + aspirin 81 mg daily for 21 days, then monotherapy with aspirin Insulin mild sliding scale Case discussed with Dr Morgan Plan discussed with: Patient (rn), Other My Orders My Orders Orders - AISHA HERNANDEZ RESIDENT Procedure Category Date Status Time Potassium Chl PHA 10/10/24 In Process 20meq/100ml 10:[address] 10/10/24 Resulted 10:54 Angio Head/Neck CT 10/10/24 Resulted 11:02 * Swallow Request ST 10/10/24 Transmitted 11:07 Echo 2d Mode Cardiac US 10/10/24 Resulted DOP 11:08 Pt Request For Service PT 10/10/24 Logged 11:10 Atorvastatin (Lipitor) PHA 10/10/24 In Process 22:00 Consistent DIET 10/10/24 Transmitted Carb(Ccho)Diabetes Dinner Brain Head Wo Contrast MRI 10/10/24 Logged 15:16 Date of Service: Oct 11, 2024 Billing Provider: MARISELA MORGAN MD Common Visit Codes: [id number] INP/OBS CARE(HIGH) Coding Comment Comment Attending Attestation I saw and evaluated the patient. I reviewed the residents note and agree with findings and plan as documented in the residents note except as documented below. AISHA HERNANDEZ RESIDENT Oct 10, 2024 15:32 MARISELA MORGAN MD Oct 11, 2024 21:00
--- NOTE | 2024-10-10 16:28 | DVH ---
MRI BRAIN HEAD WO CONTRAST INDICATION: fu stroke PT HAS RT SIDED WEAKNESS EXAM DATE: 10/10/2024 03:26 PM COMPARISON: CT HEAD WITHOUT CONTRAST on DOS: 10/10/24, CT HEAD WITHOUT CONTRAST on DOS: 10/09/24 PROCEDURE: Using a 1.5 Maria E scanner, multisequence multiplanar imaging of the brain was obtained. FINDINGS: Diffusion restriction in the left parietal periventricular white matter/caudate body. The b rain otherwise shows normal morphology and signal characteristics. No abnormal or susceptibility hyp ointensity is present. The ventricles are normal in size. The midline structures are intact. The hill r intracranial flow voids are present. The aerated spaces are unremarkable. The orbital contents and extracranial soft tissues appear normal. IMPRESSION: Diffusion restriction in the left parietal periventricular white matter/caudate body consistent with an acute infarct. Critical Result: Infarct Findings attempted to be discussed with nurses on floor however no response was recieved after 7 jerman albin and the findings of acute infarct were previously communicated. at 10/10/2024 04:14 PM and katalina wledged receipt and understanding of the findings.
[2024-10-10 17:27] LABS: Urine Bacteria None Seen /hpf (None Seen)
[2024-10-10 17:35] LABS: Urine Blood TRACE /uL (Negative); Urine Clarity Clear (Clear); Urine Color Light-Yellow (Yellow); Urine Protein, UAD 1+ (Negative); Urine Specific Gravity 1.044 (1.001-1.035); Urine Urobilinogen Normal (Negative); Urine WBC 1 /hpf (0 - 3); Urine pH 6.5 (5.0-9.0)
[2024-10-10 17:48] LABS: Amphetamine Screen, Urine Neg (NEGATIVE); Barbiturate Scree,Urine Neg (NEGATIVE); Benzodiazephine Screen, Urine Neg (NEGATIVE); Cocaine Screen, Urine Neg (NEGATIVE); Opiate Scree,Urine Neg (NEGATIVE)
[2024-10-10 17:49] LABS: Cannabinoid Screen, Urine Neg (NEGATIVE); Phencyclidine Screen, Urine Neg (NEGATIVE)
[2024-10-10] MEDS: DEXTROSE (50%) 50ML SYRG IV ONE ×2 (18:00→20:30)
[2024-10-10] MEDS: ACCU-CHEK COMFORT CURVE STRIP VI ONE ×2 (18:34→20:30)
[2024-10-10] MEDS: InsuLIN REG 1unit/0.01ml Soln (100units/ml) SC ONE ×2 (18:35→20:44)
[2024-10-10] MEDS: INSULIN LANTUS (GLARGINE) 1 /0.01ml (100units/ml) SC ONE (20:44)
[2024-10-10] MEDS: ATORVASTATIN 20 MG TAB PO SCH (21:43)
[2024-10-10] MEDS: INSULIN LANTUS (GLARGINE) 1 /0.01ml (100units/ml) SC SCH (22:00)
[2024-10-11] VITALS (9 sets, daily range): BP systolic 141–172; BP diastolic 80–93; PULSE 80–89; RESP 18–19; TEMP 97.8–98.2; O2SAT 95–99
[2024-10-11 05:39] LABS: Basophils # (auto) 0 10 ^3/uL (0-0.2); Basophils % (auto) 0.4 % (0.0-2.0); Eosinophils # (auto) 0.1 10 ^3/uL (0-0.8); Eosinophils % (auto) 1.2 % (0.0-7.0); Hematocrit 40.1 % (41.0-53.0); Lymphocytes % (auto) 20.5 % (10.0-50.0); Mean Corpuscular Hemoglobin 31.3 pg (28.0-32.0); Mean Corpuscular Hgb Conc. 34.9 g/dL (32.0-36.0); Mean Corpuscular Volume 89.6 fL (80.0-100.0); Monocytes # (auto) 0.8 10 ^3/uL (0-1.3); Monocytes % (auto) 8.1 % (0.0-12.0); Neutrophils # (auto) 6.6 10 ^3/uL (1.6-8.6); Neutrophils % (auto) 69.8 % (37.0-80.0); Platelet Count (auto) 251 10^3/uL (140-450); Red Blood Cells 4.47 10^6/uL (4.5-5.90); Red Cell Distribution Width 12.8 % (11.8-14.3); White Blood Cell 9.5 10^3/uL (4.4-10.8)
[2024-10-11 05:57] LABS: Alanine Aminotransferase 17 U/L (7-40); Albumin 3.4 g/dL (3.2-4.8); Alkaline Phosphatase 78 U/L (46-116); Anion Gap 8 (5-15); Aspartate Aminotransferase 13 U/L (13-40); Bilirubin, Total 0.5 mg/dL (0.2-1.0); Blood Urea Nitrogen 21 mg/dL (9-23); Calcium 9.3 mg/dL (8.7-10.4); Carbon Dioxide 26 mmol/L (20-31); Chloride 108 mmol/L (98-107); Glucose 118 mg/dL (74-106); Potassium 3.8 mmol/L (3.5-5.1); Sodium 142 mmol/L (136-145)
[2024-10-11] MEDS: INSULIN LISPRO (HUMAN) 100 UNITS/ML ML SC SCH (06:39)
[2024-10-11] MEDS: ACETAMINOPHEN 325 MG TAB PO PRN (15:40)
--- NOTE | 2024-10-11 18:18 | DVHPNRES ---
Progress Note Date Seen: Oct 11, 2024 Resident Creating Document: AISHA HERNANDEZ RESIDENT Has the PT tested + for MRSA If YES, has PT been informed?: No Medical Necessity Reason Pt with a Central, PICC or Fol: No Subjective Review of Systems A 49-year-old male with PMHx of DM, HL and HTN presented to ED with right-sided facial droop, right arm weakness, and mild dysarthria. Symptoms started tuesday10/08/2024 morning at approximately 0900. No vision changes, headache, loss of balance, or other neurologic deficits are reported. No syncope no chest pain. moderate alcohol intake Pt is non compliant with medication Objective vital signs Vital Sign Date Time Temp Pulse Resp B/P (MAP) Pulse Ox O2 Delivery O2 Flow Rate FiO2 10/11/24 16:51 97.8 89 18 147/80 (102) 96 97.8 10/11/24 08:00 Room Air* 0 21 Total Intake and Output 10/10/24 10/10/24 10/11/24 15:00 23:00 07:00 Intake Total 680 ml 790 ml 555 ml Balance 680 ml 790 ml 555 ml medications Current Medications Medications Dose Ordered Sig/Maribel Route Start Time Stop Time Status Last Admin Dose Admin Diagnostic Test (Pha) 1 strip IQ4HR 10/09/24 16:00 10/11/24 17:02 1 STRIP Dextrose 50 ml UD PRN IV 10/09/24 13:30 Sodium Chloride 1,000 ml @ 60 mls/hr [id number] IV 10/09/24 13:30 10/10/24 22:55 60 MLS/HR Acetaminophen 650 mg Q6HP PRN PO 10/09/24 13:30 10/11/24 15:40 650 MG Aspirin 81 mg DAILY PO 10/10/24 10:00 10/11/24 10:11 81 MG Clopidogrel Bisulfate 75 mg DAILY PO 10/10/24 10:00 10/11/24 10:11 75 MG Atorvastatin Calcium 80 mg HS PO 10/10/24 22:00 10/10/24 21:43 80 MG Insulin Glargine 10 units HS SC 10/10/24 22:00 Insulin Human Lispro 3 units AC SC 10/11/24 07:00 10/11/24 17:14 3 UNITS Losartan Potassium 50 mg DAILY PO 10/12/24 10:00 Examination General: Alert, oriented 4, appears mildly distressed. Neurologic: anisocoria NIHSS: 5 Facial palsy: Partial paralysis on the right. Motor strength: Drift in the right arm and right leg, no drift on the left side. Speech: Mild to moderate dysarthria. Other findings: No visual loss, aphasia, or sensory deficits. Cardiac: Regular rate and rhythm; no murmurs, rubs, or gallops. Respiratory: No distress, normal breath sounds bilaterally. Head and Neck: No carotid bruit; no jugular venous distention. Extremities: No edema. laboratory and microbiology Laboratory Tests 10/11/24 05:06 Test 10/11/24 05:06 Range/Units Serum Glucose 118 H 74-106 mg/dL Problem List/Assessment/Plan Problem List/Assessment/Plan Acute ischemic stroke likely recrudescence of prior stroke Non-candidate for thrombolytic therapy (symptom onset >4.5 hours). Exclusion criteria for intra-arterial intervention: No large vessel occlusion seen. Head CT scan 1. Mtxqk-vs-ejddsppl sized hypodense area extending from the left goodwin radiata and left basal ganglia compatible with an age indeterminate infarct. This appears mildly larger in size comparison to the prior study. Clinical correlation and further evaluation with MRI brain with diffusion- weighted imaging is recommended. Neck Angio 1. Old left basal ganglia infarct. 2. No evidence of hemodynamically significant intracranial stenosis, proximal occlusion or aneurysm. 3. No evidence of hemodynamically significant carotid stenosis or dissection. Brain MRI Diffusion restriction in the left parietal periventricular white matter/caudate body. The brain otherwise shows normal morphology and signal characteristics. No abnormal or susceptibility hypointensity is present. The ventricles are normal in size. The midline structures are intact. The major intracranial flow voids are present. The aerated spaces are unremarkable. The orbital contents and extracranial soft tissues appear normal. Plavix 300 mg PO x1, followed by 75 mg daily + aspirin 81 mg daily for 21 days, then monotherapy with Aspirin Swallow test successfully PT on the case Essential Hypertension BP management: losartan 50 mg daily Diabetes Mellitus Type 2 Hba1c: 12.7 Insulin lantus 10 ui Insulin lispro 3UI TID Hyperlipidemia Atorvastatin 80 mg Case discussed with Dr Manolo Alvares discussed with: Patient, Other (rn) My Orders My Orders Orders - AISHA HERNANDEZ RESIDENT Procedure Category Date Status Time Losartan Tablet PHA 10/12/24 In Process (Cozaar Tablet) 10:00 Losartan Tablet PHA 10/11/24 Verified (Cozaar Tablet) 18:30 Date of Service: Oct 10, 2024 Billing Provider: MARISELA MORGAN MD Common Visit Codes: [id number] INP/OBS CARE(HIGH) Coding Comment Comment Attending Attestation I saw and evaluated the patient. I reviewed the residents note and agree with findings and plan as documented in the residents note except as documented below. AISHA HERNANDEZ RESIDENT Oct 11, 2024 18:18 MARISELA MORGAN MD Oct 11, 2024 21:03
[2024-10-11] MEDS: LOSARTAN POTASSIUM 50 MG TAB PO SCH (18:58)
[2024-10-12] VITALS (7 sets, daily range): BP systolic 121–142; BP diastolic 72–89; PULSE 77–92; RESP 17–18; TEMP 97.7–98.3; O2SAT 97
[2024-10-12] MEDS ORDERED: InsuLIN REG 1unit/0.01ml Soln (100units/ml) SC ONE ×2 (00:30)
[2024-10-12] MEDS: InsuLIN REG 1unit/0.01ml Soln (100units/ml) SC ONE (01:04)
[2024-10-12 05:40] LABS: Basophils # (auto) 0 10 ^3/uL (0-0.2); Basophils % (auto) 0.4 % (0.0-2.0); Eosinophils # (auto) 0.1 10 ^3/uL (0-0.8); Eosinophils % (auto) 1.8 % (0.0-7.0); Hemoglobin 14.4 g/dL (13.5-17.5); Lymphocytes # (auto) 1.7 10 ^3/uL (0.4-5.4); Lymphocytes % (auto) 22.5 % (10.0-50.0); Mean Corpuscular Hemoglobin 31.3 pg (28.0-32.0); Mean Corpuscular Hgb Conc. 35.1 g/dL (32.0-36.0); Monocytes # (auto) 0.8 10 ^3/uL (0-1.3); Monocytes % (auto) 10.1 % (0.0-12.0); Neutrophils # (auto) 5.1 10 ^3/uL (1.6-8.6); Neutrophils % (auto) 65.2 % (37.0-80.0); Nucleated Red Blood Cells % 0.1 %; Platelet Count (auto) 250 10^3/uL (140-450); White Blood Cell 7.8 10^3/uL (4.4-10.8)
[2024-10-12 06:07] LABS: Alanine Aminotransferase 16 U/L (7-40); Albumin 3.6 g/dL (3.2-4.8); Alkaline Phosphatase 79 U/L (46-116); Anion Gap 5 (5-15); Aspartate Aminotransferase 11 U/L (13-40); BUN/Creatinine Ratio 19.3 (10.0-20.0); Bilirubin, Total 0.6 mg/dL (0.2-1.0); Blood Urea Nitrogen 16 mg/dL (9-23); Calcium 9.5 mg/dL (8.7-10.4); Carbon Dioxide 25 mmol/L (20-31); Chloride 108 mmol/L (98-107); Glucose 108 mg/dL (74-106); Potassium 3.9 mmol/L (3.5-5.1); Sodium 138 mmol/L (136-145); Total Protein 6.2 g/dL (5.7-8.2)
[2024-10-12] MEDS: InsuLIN REG 1unit/0.01ml Soln (100units/ml) SC SCH (06:25)
[2024-10-12] MEDS: ACCU-CHEK COMFORT CURVE STRIP VI SCH (06:25)
[2024-10-12] MEDS ORDERED: LOSARTAN POTASSIUM 50 MG TAB PO SCH (10:00)
[2024-10-12] MEDS ORDERED: CLOP75TA70 PO (15:15)
[2024-10-12] MEDS ORDERED: ATOR20TA50 PO (15:15)
[2024-10-12] MEDS ORDERED: ASPI-325 PO (15:15)
[2024-10-12] MEDS ORDERED: ACET-1882 PO (15:15)
[2024-10-12] MEDS ORDERED: INSLISPI SC (15:15)
[2024-10-12] MEDS ORDERED: INSLANTI SC (15:15)
[2024-10-12] MEDS ORDERED: LOSA-534 PO (15:15)
[2024-10-12] MEDS ORDERED: BLOO1KIT60 XX (16:32)
--- NOTE | 2024-10-12 17:35 | DVHDSRES ---
Discharge Summary Date of Admission Resident Creating Document: AISHA HERNANDEZ RESIDENT Oct 09, 2024 at 14:49 Date of Discharge: Oct 12, 2024 Admitting Diagnosis acute stroke Labs/Diagnostic Data: Laboratory Results Test 10/12/24 11:55 10/12/24 05:20 10/10/24 17:00 10/10/24 05:43 POC Glucose 181 mg/dl (70-106) White Blood Count 7.8 10^3/uL (4.4-10.8) Red Blood Count 4.60 10^6/uL (4.5-5.90) Hemoglobin 14.4 g/dL (13.5-17.5) Hematocrit 41.0 % (41.0-53.0) Mean Corpuscular Volume 89.0 fL (80.0-100.0) Mean Corpuscular Hemoglobin 31.3 pg (28.0-32.0) Mean Corpuscular Hemoglobin Concent 35.1 g/dL (32.0-36.0) Red Cell Distribution Width 13.0 % (11.8-14.3) Platelet Count 250 10^3/uL (140-450) Mean Platelet Volume 8.1 fL (6.9-10.8) Neutrophils (%) (Auto) 65.2 % (37.0-80.0) Lymphocytes (%) (Auto) 22.5 % (10.0-50.0) Monocytes (%) (Auto) 10.1 % (0.0-12.0) Eosinophils (%) (Auto) 1.8 % (0.0-7.0) Basophils (%) (Auto) 0.4 % (0.0-2.0) Neutrophils # (Auto) 5.1 10 ^3/uL (1.6-8.6) Lymphocytes # (Auto) 1.7 10 ^3/uL (0.4-5.4) Monocytes # (Auto) 0.8 10 ^3/uL (0-1.3) Eosinophils # (Auto) 0.1 10 ^3/uL (0-0.8) Basophils # (Auto) 0 10 ^3/uL (0-0.2) Nucleated Red Blood Cells 0.1 % Sodium Level 138 mmol/L (136-145) Potassium Level 3.9 mmol/L (3.5-5.1) Chloride Level 108 mmol/L (98-107) Carbon Dioxide Level 25 mmol/L (20-31) Anion Gap 5 (5-15) Blood Urea Nitrogen 16 mg/dL (9-23) Creatinine 0.83 mg/dL (0.700-1.30) Glomerular Filtration Rate Calc 107 mL/min (>90) BUN/Creatinine Ratio 19.3 (10.0-20.0) Serum Glucose 108 mg/dL (74-106) Calcium Level 9.5 mg/dL (8.7-10.4) Total Bilirubin 0.6 mg/dL (0.2-1.0) Aspartate Amino Transferase (AST) 11 U/L (13-40) Alanine Aminotransferase (ALT) 16 U/L (7-40) Alkaline Phosphatase 79 U/L (46-116) Total Protein 6.2 g/dL (5.7-8.2) Albumin 3.6 g/dL (3.2-4.8) Urine Color Light-yellow (Yellow) Urine Clarity Clear (Clear) Urine pH 6.5 (5.0-9.0) Urine Specific [place] 1.044 (1.001-1.035) Urine Protein 1+ (Negative) Urine Ketones Negative (Negative) Urine Blood Trace /uL (Negative) Urine Nitrite Negative (Negative) Urine Bilirubin Negative (Negative) Urine Urobilinogen Normal mg/dL (Negative) Urine Leukocyte Esterase Negative /uL (Negative) Urine RBC <1 /hpf (0 - 3) Urine WBC 1 /hpf (0 - 3) Urine Squamous Epithelial Cells None seen /hpf (<5) Urine Bacteria None seen /hpf (None Seen) Urine Glucose 4+ mg/dL (Normal) Urine Opiates Screen Neg (NEGATIVE) Urine Fentanyl Screen Neg (NEGATIVE) Urine Barbiturates Screen Neg (NEGATIVE) Urine Phencyclidine Screen Neg (NEGATIVE) Urine Amphetamines Screen Neg (NEGATIVE) Urine Benzodiazepines Screen Neg (NEGATIVE) Urine Cocaine Screen Neg (NEGATIVE) Urine Cannabinoids Screen Neg (NEGATIVE) Hemoglobin A1c 12.7 % A1C (<5.7) Triglycerides Level 124 mg/dL (< 150) Cholesterol Level 251 mg/dL (< 200) LDL Cholesterol 180 mg/dL (< 100) HDL Cholesterol 47 mg/dL (40-59) Thyroid Stimulating Hormone (TSH) 1.02 uIU/mL (0.55-4.78) Test 10/09/24 12:35 Troponin I High Sensitivity 15 ng/L (</=54) Other Laboratory Tests 10/12/24 05:20 Brief Hx & Hospital Course: The patient, a 49-year-old male with a history of diabetes mellitus (Hba1c: 12.7%), hypertension, and hyperlipidemia, presented with right-sided facial droop, right arm weakness, and mild dysarthria that began on the morning of 10/08/2024. Imaging revealed [id number] hypodense areas in the left [place] radiata and basal ganglia, consistent with an age-indeterminate infarct. The clinical presentation and imaging findings suggest recrudescence of prior stroke symptoms rather than a new infarct. The patient was not a candidate for thrombolysis or intra-arterial intervention due to symptom onset greater than 4.5 hours and absence of large vessel occlusion. Further diagnostic workup, including brain MRI, confirmed diffusion restriction in the left parietal periventricular region without midline shift or abnormal intracranial flow voids. He successfully passed the swallow evaluation. At discharge, the patient was started on insulin glargine 15 IU daily and insulin lispro 4 IU TID for glycemic control, along with losartan 50 mg daily for blood pressure management and atorvastatin 80 mg daily for lipid lowering. Dual antiplatelet therapy with Plavix 75 mg daily and aspirin 81 mg daily was prescribed for 21 days, after which aspirin monotherapy will be continued. The patient was referred for outpatient physical and speech therapy to address residual deficits and was counseled on medication adherence, lifestyle modifications, and the importance of follow-up care. Neurology and primary care follow-ups were arranged. At the time of discharge, the patient was hemodynamically stable and neurologically at baseline. General: Alert, oriented 4, appears mildly distressed. Neurologic: anisocoria NIHSS: 5 Facial palsy: Partial paralysis on the right. Motor strength: Drift in the right arm and right leg, no drift on the left side. Speech: Mild to moderate dysarthria. Other findings: No visual loss, aphasia, or sensory deficits. Cardiac: Regular rate and rhythm; no murmurs, rubs, or gallops. Respiratory: No distress, normal breath sounds bilaterally. Head and Neck: No carotid bruit; no jugular venous distention. Extremities: No edema. Case discussed with Dr French Consults/Reason for consult neurology due to stroke Operations or Procedures MRI BRAIN HEAD WO CONTRAST INDICATION: fu stroke PT HAS RT SIDED WEAKNESS EXAM DATE: 10/10/2024 03:26 PM COMPARISON: CT HEAD WITHOUT CONTRAST on DOS: 10/10/24, CT HEAD WITHOUT CONTRAST on DOS: 10/09/24 PROCEDURE: Using a 1.5 Maria E scanner, multisequence multiplanar imaging of the brain was obtained. FINDINGS: Diffusion restriction in the left parietal periventricular white matter/caudate body. The brain otherwise shows normal morphology and signal characteristics. No abnormal or susceptibility hypointensity is present. The ventricles are normal in size. The midline structures are intact. The major intracranial flow voids are present. The aerated spaces are unremarkable. The orbital contents and extracranial soft tissues appear normal. IMPRESSION: Diffusion restriction in the left parietal periventricular white matter/caudate body consistent with an acute infarct. Critical Result: Infarct Findings attempted to be discussed with nurses on floor however no response was recieved after 7 minutes and the findings of acute infarct were previously communicated. 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 Patient was counseled about treatment plan, medications, possible side effects, patientverbalized understanding. All questions were answered to the best of my ability. This discharge took greater then 30 minutes in planning, reviewing documentation, counseling the patient, and discussing with other team members." ASSESSMENT ASSESSMENT Assessment acute stroke AISHA HERNANDEZ RESIDENT Oct 12, 2024 17:35
== END 2024-10-12 17:10 | disposition home or self-care (01) | DRG 45 ==
LOC: ER 08:23 → TELE 14:49 → TELE-E-ADS 22:10
PROVIDERS: ADMIT Student in an Organized Health Care Education/Training Program; ATTEND Student in an Organized Health Care Education/Training Program
DX: I63.9 Cerebral infarction, unspecified (principal); E11.22 Type 2 diabetes mellitus with diabetic chronic kidney disease; I12.9 Hypertensive chronic kidney disease with stage 1 through stage 4 chronic kidney disease, or unspecified chronic kidney disease; N18.9 Chronic kidney disease, unspecified; E78.5 Hyperlipidemia, unspecified; Z88.0 Allergy status to penicillin; Z90.49 Acquired absence of other specified parts of digestive tract
CPT/HCPCS: 36415; 70450; 70496; 70551; 71046; 80048; 80053; 80061; 80307; 81001; 82962; 83036; 84443; 84484; 85025; 92507; 93005; 93306; 96360; 97163; 99291; G0378; J1815; J3480

== ENCOUNTER → 2024-12-24 | Outpatient (CLI) | payer MEDICAID ==
[~2024-12-24] MED LIST: ACET-1882 PO; ASPI-325 PO; ATOR20TA50 PO; BLOO1KIT60 XX; CLOP75TA70 PO; INSLANTI SC; INSLISPI SC; LOSA-534 PO
[2024-12-24 10:30] LABS: Urine Bacteria None Seen /hpf (None Seen)
[2024-12-24 12:12] LABS: Urine Blood 1+ /uL (Negative); Urine Clarity Clear (Clear); Urine Color Yellow (Yellow); Urine Hyaline Cast FEW /lpf (0 - 2); Urine Mucus FEW (None Seen); Urine Protein, UAD 3+ (Negative); Urine Specific Gravity 1.039 (1.001-1.035); Urine Squamous Epithelial Cell None Seen /hpf (<5); Urine Urobilinogen Normal (Negative); Urine WBC 2 /HPF (0-3)
[2024-12-24 12:21] LABS: Alanine Aminotransferase 28 U/L (7-40); Albumin 4.3 g/dL (3.2-4.8); Alkaline Phosphatase 98 U/L (46-116); Anion Gap 7 (5-15); Aspartate Aminotransferase 15 U/L (13-40); BUN/Creatinine Ratio 22.7 (10.0-20.0); Carbon Dioxide 29 mmol/L (20-31); Chloride 102 mmol/L (98-107); LDL Cholesterol 85 mg/dL (< 100); Potassium 5.1 mmol/L (3.5-5.1); Sodium 138 mmol/L (136-145); Triglycerides 79 mg/dL (< 150)
[2024-12-24 12:22] LABS: Bilirubin, Total 0.5 mg/dL (0.2-1.0); Cholesterol 146 mg/dL (< 200); HDL Cholesterol 46 mg/dL (40-59); Total Protein 7.2 g/dL (5.7-8.2)
[2024-12-24 12:28] LABS: Blood Urea Nitrogen 27 mg/dL (9-23); Calcium 10.5 mg/dL (8.7-10.4); Glucose 272 mg/dL (74-106)
== END | disposition home or self-care (01) ==
LOC: LAB 10:14
PROVIDERS: ATTEND Internal Medicine
DX: I10 Essential (primary) hypertension (principal); E11.65 Type 2 diabetes mellitus with hyperglycemia; E78.5 Hyperlipidemia, unspecified
CPT/HCPCS: 36415; 80053; 80061; 81001; 83036; 84443; 84481

== ENCOUNTER → 2025-03-04 | Outpatient (CLI) | payer MEDICAID ==
[2025-03-04 09:17] LABS: Alanine Aminotransferase 29 U/L (7-40); Albumin 4.5 g/dL (3.2-4.8); Alkaline Phosphatase 76 U/L (46-116); Anion Gap 6 (5-15); Aspartate Aminotransferase 22 U/L (13-40); BUN/Creatinine Ratio 20.6 (10.0-20.0); Bilirubin, Total 0.5 mg/dL (0.2-1.0); Blood Urea Nitrogen 22 mg/dL (9-23); Calcium 10.1 mg/dL (8.7-10.4); Carbon Dioxide 30 mmol/L (20-31); Chloride 105 mmol/L (98-107); Cholesterol 134 mg/dL (< 200); Glucose 89 mg/dL (74-106); HDL Cholesterol 45 mg/dL (40-59); LDL Cholesterol 71 mg/dL (< 100); Potassium 4.3 mmol/L (3.5-5.1); Sodium 141 mmol/L (136-145); Total Protein 7.5 g/dL (5.7-8.2); Triglycerides 70 mg/dL (< 150)
== END | disposition home or self-care (01) ==
LOC: LAB 08:28
PROVIDERS: ATTEND Internal Medicine
DX: I10 Essential (primary) hypertension (principal); E11.65 Type 2 diabetes mellitus with hyperglycemia
CPT/HCPCS: 36415; 80053; 80061; 83036

== ENCOUNTER 2025-06-17 09:24 | Outpatient (CLI) | payer MEDICAID ==
[2025-06-17 10:41] LABS: Alanine Aminotransferase 20 U/L (7-40); Albumin 4.0 g/dL (3.2-4.8); Alkaline Phosphatase 100 U/L (46-116); Anion Gap 6 (5-15); BUN/Creatinine Ratio 27.2 (10.0-20.0); Calcium 9.6 mg/dL (8.7-10.4); Carbon Dioxide 26 mmol/L (20-31); Chloride 103 mmol/L (98-107); Cholesterol 131 mg/dL (< 200); Potassium 4.3 mmol/L (3.5-5.1); Total Protein 6.7 g/dL (5.7-8.2); Triglycerides 80 mg/dL (< 150)
[2025-06-17 10:42] LABS: Bilirubin, Total 0.5 mg/dL (0.2-1.0); Blood Urea Nitrogen 31 mg/dL (9-23); Glucose 302 mg/dL (74-106); HDL Cholesterol 39 mg/dL (40-59); Sodium 135 mmol/L (136-145)
== END 2025-06-17 17:00 | disposition home or self-care (01) ==
LOC: LAB 09:24
PROVIDERS: ATTEND Internal Medicine
DX: E11.65 Type 2 diabetes mellitus with hyperglycemia (principal); E78.5 Hyperlipidemia, unspecified
CPT/HCPCS: 36415; 80053; 80061; 83036